=== PATIENT | female | born 1965 | race Asian ===

== ENCOUNTER 2021-03-31 13:52 | Emergency (ER) | payer OTHER ==
[~2021-03-31] VITALS: Ht 160 cm; Wt 88.5 kg
[2021-03-31 17:34] VITALS: BP 170/92
== END 2021-03-31 15:45 | disposition home or self-care (01) ==
LOC: FSED 14:01
DX: R07.89 Other chest pain (principal); I12.9 Hypertensive chronic kidney disease with stage 1 through stage 4 chronic kidney disease, or unspecified chronic kidney disease; N18.9 Chronic kidney disease, unspecified; E78.5 Hyperlipidemia, unspecified; K21.9 Gastro-esophageal reflux disease without esophagitis
CPT/HCPCS: 71046; 80048; 80076; 81003; 82553; 84484; 85025; 93005; 99284